=== PATIENT | male | born 1965 | race Caucasian/White ===

== ENCOUNTER 2019-04-04 09:33 | Inpatient (IN) | payer MEDICARE, MEDICAID, SELFPAY ==
[2019-04-04] VITALS (11 sets, daily range): BP systolic 126–150; BP diastolic 75–97; PULSE 71–148; RESP 16–20; TEMP 35.8–37.1; O2SAT 98–100; BMI 29.7
--- NOTE | ~2019-04-04 | XR_ITS ---
XR chest 1V portable 04/04/2019 10:40 Indication: Tachycardia. Patient on dialysis. Bilateral foot ulcers. Procedure: AP portable chest Comparison: 02/21/2019 Findings: Status post median sternotomy for CABG. Heart size mildly enlarged. Dual-lumen large bore c entral venous catheter, distal tip in the right atrium. No focal air space disease, pulmonary edema, pleural effusion or suspected pneumothorax. Impression: 1: No acute cardiopulmonary disease. Reviewed, dictated and finalized at location B. T DEVELOPER Impression: 1: No acute cardiopulmonary disease.
--- NOTE | 2019-04-04 09:58 | ED.GENADULT ---
HPI - General Adult General Chief complaint: Unspecified Stated complaint: High Blood Pressure Time Seen by Provider: 04/04/19 09:57 Source: patient and family Mode of arrival: ambulatory Limitations: no limitations History of Present Illness HPI narrative: The pt is a 53 y/o male who presents to the ED with c/o rapid HR that began this morning. Per family member, the pt's dialysis was cut 30 minutes short when staff noticed that his HR increased towards the end of his dialysis. The pt states that he has not had a high HR like this before and that he was at 88 bpm upon starting dialysis. His spot welder body assembly is Dr. Roche and he has been receiving dialysis for 2 months. The pt also reports weakness and foot wounds bilaterally. He has a PMHx of DM, HTN, CABG, and peripheral neuropathy, as well as a SHx of a CABG, stents, and a toe amputation. The pt's manager child is Dr. Pool at [place]. He is currently on Plavix and ASA. MD complaint: Rapid HR Onset (ago): hour(s) (this morning) Associated symptoms: weakness and other (foot wounds bilaterally) Related Data Allergies Allergy/AdvReac Type Severity Reaction Status Date / Time lisinopril Allergy Unknown Unknown Verified 04/04/19 09:49 Review of Systems Review of Systems: All systems reviewed & are unremarkable except as noted in HPI and below Constitutional: Constitutional: Reports weakness Integumentary/Breasts: Skin/Breast: Reports wounds (bilateral feet) PMFSH Past Medical History Medical History (Updated 04/04/19 @ 11:59 by Yue Haq MD) Diabetes Dialysis patient Hyperlipidemia Hypertension Kidney failure Peripheral neuropathy Seizures Surgical History Surgical History (Updated 04/04/19 @ 10:43 by Kassandra Longo) History of heart artery stent Hx of amputation toe Hx of CABG Hx of cardiac cath Social History Social History (Updated 04/04/19 @ 10:43 by Kassandra Longo) Smoking status: Never smoker Gender identity (if verbalized by the patient): Male Exam Narrative: Exam Narrative: General appearance: Well-developed, well-nourished, at the bedside Skin: Normal color, macerated skin of the feet bilaterally after labs showed blisters, no discharge Head: Normocephalic, nontraumatic Eyes: Clear conjunctiva ENT: Oropharynx normal, ears normal, nose normal Neck: Supple, nontender Chest and respiratory: Airway patent, no respiratory distress, no accessory muscle use, right chest dialysis catheter in place Heart: Tachycardia Abdomen: Soft, nontender, no organomegaly, quiet bowel sounds Vascular: Normal peripheral pulses, normal capillary refill. Musculoskeletal: Normal range of motion, nontender back Neurologic: Alert and oriented ?3, RN STARS is normal as tested, no gross motor deficit Course Course Emergency Course: Improving Currently patient monitor/EKG showed normal sinus rhythm. Basically patient converted to normal sinus rhythm from a flutter. Consultations Consultation #1: Discussed case with Crys Orozco NP to Rehabilitation Therapist, who has agreed to place Dr. Altamirano on the case. Date: 04/04/19 Time: 11:48 Consultation #2: Discussed case with Madelyn Malhotra NP to Hospitalist. Accepted admission. Date: 04/04/19 Time: 12:07 Consultation #3: Discussed case with Dr. Ferrer, Manager Trade Marketing. Will see pt for consult. Date: 04/04/19 Time: 12:24 Vital Signs Vital signs: Vital Signs Pulse Rate 148 H 04/04/19 09:43 Respiratory Rate 18 04/04/19 09:43 Blood Pressure 139/97 H 04/04/19 09:43 Pulse Oximetry 99 04/04/19 09:43 Pulse Rate 80 04/04/19 11:27 Respiratory Rate 18 04/04/19 09:43 Blood Pressure 126/84 04/04/19 11:27 Pulse Oximetry 100 05
--- NOTE | 2019-04-04 10:23 | ECG_ITS ---
Measurements Intervals [place] Rate: 148 P: MN: 0 QRS: -26 QRSD: 109 T: 100 QT: 293 QTc: 460 Interpretive Statements ATRIAL FLUTTER/TACHYCARDIA WITH RAPID VENTRICULAR RESPONSE ANTEROSEPTAL INFARCT, AGE INDETERMINATE BORDERLINE ST-T WAVE ABNORMALITY- LATERAL LEADS ABNORMAL ECG Electronically Signed On 04-04-2019 11:27:14 CYBER SECURITY MANAGER by Luke Ariza D.O.
[2019-04-04 10:47] LABS: Basophils Absolute Auto 0.1 K/mm3 (0.0-0.1); Basophils Percent Auto 0.7 % (0.2-1.2); Eosinophils Absolute Auto 0.1 K/mm3 (0-0.3); Eosinophils Percent Auto 1.2 % (0-4.4); Hematocrit 32.9 % (42.0-52.0); Hemoglobin 10.2 g/dL (14.0-18.0); Immature Granulocyte Absolute 0.03 K/mm3 (0.00-0.031); Immature Granulocyte Percent A 0.4 % (0-0.5); Lymphocytes Absolute Auto 1.07 K/mm3 (0.9-3.2); Lymphocytes Percent Auto 14.5 % (18.3-44.2); Mean Corpuscular Hemoglobin 28.8 pg (26-34); Mean Corpuscular Volume 92.9 fl (80-100); Mean Platelet Volume 8.8 fl (7.4-10.4); Monocytes Absolute Auto 0.7 K/mm3 (0.1-0.6); Monocytes Percent Auto 10.1 % (2.6-8.5); Neutrophils Absolute Auto 5.4 K/mm3 (1.3-6.7); Neutrophils Percent Auto 73.1 % (45.5-73.1); Platelet Count Result 253 k/mm3 (150-375); Red Blood Count 3.54 M/mm3 (4.6-6.20); Red Cell Distribution Width 15.4 % (11.5-14.5); White Blood Count 7.4 K/mm3 (4.5-10.0)
[2019-04-04 10:58] LABS: INR 1.1
[2019-04-04 10:59] LABS: Partial Thromboplastin Time 30.9 SECONDS (22.3-36.8)
[2019-04-04 11:08] LABS: Alanine Aminotransferase 14 U/L (4-50); Albumin Level 3.1 g/dL (3.5-5.1); Alkaline Phosphatase 112 U/L (38-126); Aspartate Amino Transferase 19 U/L (17-59); Bilirubin,Total 0.3 mg/dL (0.2-1.3); Blood Urea Nitrogen 15 mg/dL (9-20); Carbon Dioxide 29 mmol/L (22-30); Chloride 102 mmol/L (98-107); Estimated CRCL calculation 44 ml/min; Estimated Glomerular Filt Rate 35; Glucose 160 mg/dL (75-110); Potassium 3.5 mmol/L (3.4-5.0); Sodium 138 mmol/L (137-145)
[2019-04-04 11:21] LABS: Troponin I 0.086 ng/mL (0.000-0.034)
--- NOTE | 2019-04-04 11:59 | ECG_ITS ---
Measurements Intervals [place] Rate: 85 P: 156 AR: 168 QRS: -24 QRSD: 106 T: 151 QT: 399 QTc: 475 Interpretive Statements ECTOPIC ATRIAL RHYTHM POSSIBLE LEFT ATRIAL ENLARGEMENT INCOMPLETE RIGHT BUNDLE BRANCH BLOCK ANTEROSEPTAL INFARCT, AGE INDETERMINATE ST-T WAVE ABNORMALITY IN LATERAL LEADS- CONSIDER ISCHEMIA ABNORMAL ECG Electronically Signed On 04-04-2019 13:00:39 CONFERENCE DIRECTOR by Luke Ariza D.O.
--- NOTE | 2019-04-04 13:04 | PM.CNNEP ---
Assessment and Plan Assessment and plan (1) Atrial flutter, paroxysmal: Code(s): I48.92 - Unspecified atrial flutter Status: Acute Assessment and Plan: Patient had atrial flutter with rapid ventricular rate. This has spontaneously resolved. He does have coronary artery disease as a risk factor. He also was at the end of his dialysis so electrolytes may have played a role. Indeed his potassium was 3.5 in the emergency room and so may have been Lower at the end of his treatment. We should check a magnesium level as well. Troponins are elevated. Cardiology is going to see. (2) Acute kidney failure, unspecified: Code(s): N17.9 - Acute kidney failure, unspecified Status: Acute Assessment and Plan: The patient has acute kidney injury. His creatinine is only 2 here but this is directly after dialysis. We can watch to see how rapidly his creatinine rises. He does seem to be making a little bit of urine. Maybe he has some recovery? (3) Erythropoietin deficiency anemia: Code(s): D63.1 - Anemia in chronic kidney disease Status: Acute Assessment and Plan: The patient has a hemoglobin of 10.2. He will get Epogen with dialysis (4) Second degree burn of foot: Code(s): T25.229A - Burn of second degree of unspecified foot, initial encounter Status: Acute Assessment and Plan: The wounds look fresh. He says that his has been treating the wounds topically. (5) Hypotension: Code(s): I95.9 - Hypotension, unspecified Status: Acute Assessment and Plan: Blood pressure is under good control right now. (6) CAD (coronary artery disease): Code(s): I25.10 - Atherosclerotic heart disease of [place] coronary artery without angina pectoris Status: Acute Assessment and Plan: The patient is not having any chest pain. His troponins are elevated. Perhaps this is from his renal failure. Cardiology will see History of Present Illness Reason for Consult Consult date: 04/04/19 Chief Complaint Chief complaint: High Blood Pressure History of Present Illness Narrative: Arturo is a very pleasant 53-year-old gentleman with multiple medical problems including acute kidney injury, coronary disease status post stents and bypass surgery, chronic hypotension, hyperlipidemia, hypertension, BPH, obstructive uropathy, osteomyelitis of the right great toe, diabetes with retinopathy and nephropathy. The patient was getting dialysis today. It went well until about 10 minutes before the end of the treatment when he developed palpitations. The machine alarmed with a fast heart rate. It apparently was running around 150. They took him off the machine and sent him over to the emergency room. In the ER he was found to have atrial flutter with rapid ventricular rate. The patient spontaneously reverted to sinus rhythm. He feels better right now. Evaluation revealed an elevated troponin so he is being capped for further evaluation. The patient mentions that he had dry feet and so his ran him a hot bath with Epsom salts and soap. Unfortunately the water was too hot and he burned both feet. He has neuropathy so it did not hurt him. He says he tested the water with his hand and felt like it was just warm. Review of Systems Constitutional: Constitutional: Reports no additional constitutional complaints Eyes: Eyes: Reports no additional eye complaints ENT: Reports system reviewed and no additional complaints, except as documented Cardiovascular: Cardiovascular: Reports no additional cardiovascular complaints Gastrointestinal: Gastrointestinal: Reports no additional gastrointestinal complaints Genitourinary: Genitourinary: Reports no additional male genitourinary complaints Musculoskeletal: Musculoskeletal: Reports no additional musculoskeletal complaints Integumentary/Breasts: Skin/Breast: Reports system reviewed and no additional complaints, exce
[2019-04-04 14:26] LABS: Troponin I 0.116 ng/mL (0.000-0.034)
--- NOTE | 2019-04-04 15:14 | PM.IMHP ---
H&P: HPI History of Present Illness Chief complaint: Atrial flutter with RVR/and STEMI/feet burn Narrative: Arturo Mcmillan is a 53 year old male with a past medical history of having intermittent atrial fibrillation. The patient was at dialysis today when they noticed that his heart rate was increased and his dialysis was cut short by 30 minutes. He has a past medical history of having had double bypass and 4 stents December of this year. This was performed at [facility]. He was discharged on 02/18/2019 from [facility]. Patient had a 2 vessel CABG on January 25, 2019 followed by 4 stents on 01/28/2019. Patient had a short-lived. Atrial fibrillation which was treated with amiodarone load and low-dose metoprolol. Patient converted to normal sinus rhythm at that time. Please see his notes from [facility]. Patient was also noted to have ghosh on his feet. The patient stated that he had dry skin and he was soaking his feet and did realize they got burned. His severe peripheral neuropathy. Patient stated he is not able to take a shower since he has a temporary dialysis catheter to his right upper chest. Patient stated that in the next week he is supposed yet mapped for a permanent dialysis device. Patient is currently on a Cardizem drip. According to Cardiology the patient converted somewhere after level o'clock today. Review of Systems Review of Systems: All systems reviewed & are unremarkable except as noted in HPI and below Constitutional: Constitutional: Reports as per HPI and Reports no additional constitutional complaints Eyes: Eyes: Reports as per HPI and Reports other (Legally blind due to retinopathy.) ENT: Reports system reviewed and no additional complaints, except as documented and Reports hearing normal Cardiovascular: Cardiovascular: Reports other (Atrial fibrillation) Respiratory: Respiratory: Reports no additional respiratory complaints and Reports no additional respiratory complaints Gastrointestinal: Gastrointestinal: Reports as per HPI and Reports no additional gastrointestinal complaints Musculoskeletal: Musculoskeletal: Reports no additional musculoskeletal complaints Integumentary/Breasts: Skin/Breast: Reports as per HPI and Reports other (Ghosh to his feet.) Neurologic: Reports system reviewed and no additional complaints, except as documented, Reports as per HPI and Reports Normal hearing present Psychiatric: Psychiatric: Reports no additional psychiatric complaints and Reports as per HPI Endocrine: Endocrine: Reports no additional endocrine complaints Hematologic/Lymphatic: Hematologic/Lymphatic: Reports no additional hematologic/lymphatic complaints Allergic/Immunologic: Allergic/Immunologic: Reports no additional allergic/immunologic complaints [facility] Past Medical History Medical History (Updated 04/04/19 @ 15:36 by Madelyn Malhotra NP) Atrial fibrillation CAD (coronary artery disease) History of 4 stents and double bypass Congestive heart failure Mixed with EF approximately 30% grade 1 diastolic Diabetes Dialysis patient Erythropoietin deficiency anemia Hyperlipidemia Hypertension Hypotension Kidney failure 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 He does need her to be durable power attorney law clerk and is a full code. Patient states he occasionally drinks a beer but not very often. Stated he has
[2019-04-04 16:31] LABS: Glucose Point of Care 98 (65-105)
[2019-04-04 17:18] LABS: Troponin I 0.178 ng/mL (0.000-0.034)
[2019-04-04 17:40] LABS: Hemoglobin A1C 5.4 % (<5.7)
[2019-04-04] MEDS: HEPARIN SODIUM 5,000 UNITS/ML VIAL 5000 UNITS SUB-Q (20:27)
[2019-04-04] MEDS: SILVERGEL (ELTA) 45 ML 1 APPLIC TOPICAL (20:31)
[2019-04-04 20:35] LABS: Glucose Point of Care 81 (65-105)
[2019-04-05] VITALS (16 sets, daily range): BP systolic 124–151; BP diastolic 71–88; PULSE 67–92; RESP 16–18; TEMP 36.2–36.6; O2SAT 95–100
[2019-04-05 06:37] LABS: Basophils Absolute Auto 0.1 K/mm3 (0.0-0.1); Basophils Percent Auto 0.8 % (0.2-1.2); Eosinophils Absolute Auto 0.2 K/mm3 (0-0.3); Eosinophils Percent Auto 2.4 % (0-4.4); Hematocrit 31.3 % (42.0-52.0); Hemoglobin 10.1 g/dL (14.0-18.0); Immature Granulocyte Absolute 0.03 K/mm3 (0.00-0.031); Immature Granulocyte Percent A 0.5 % (0-0.5); Lymphocytes Absolute Auto 0.97 K/mm3 (0.9-3.2); Lymphocytes Percent Auto 15.5 % (18.3-44.2); Mean Corpuscular HGB Conc 32.3 g/dl (32-36); Mean Corpuscular Hemoglobin 28.9 pg (26-34); Mean Corpuscular Volume 89.7 fl (80-100); Mean Platelet Volume 8.8 fl (7.4-10.4); Monocytes Absolute Auto 0.6 K/mm3 (0.1-0.6); Monocytes Percent Auto 8.8 % (2.6-8.5); Neutrophils Absolute Auto 4.5 K/mm3 (1.3-6.7); Platelet Count Result 272 k/mm3 (150-375); Red Blood Count 3.49 M/mm3 (4.6-6.20); Red Cell Distribution Width 15.3 % (11.5-14.5); White Blood Count 6.3 K/mm3 (4.5-10.0)
[2019-04-05 06:51] LABS: Alanine Aminotransferase 12 U/L (4-50); Alkaline Phosphatase 93 U/L (38-126); Aspartate Amino Transferase 17 U/L (17-59); Bilirubin,Total 0.4 mg/dL (0.2-1.3); Blood Urea Nitrogen 19 mg/dL (9-20); Calcium 8.4 mg/dL (8.4-10.2); Carbon Dioxide 27 mmol/L (22-30); Chloride 103 mmol/L (98-107); Estimated CRCL calculation 29 ml/min; Estimated Glomerular Filt Rate 25; Glucose 80 mg/dL (75-110); Magnesium 1.9 mg/dL (1.6-2.3); Potassium 4.2 mmol/L (3.4-5.0); Sodium 139 mmol/L (137-145)
[2019-04-05 07:09] LABS: Troponin I 0.206 ng/mL (0.000-0.034)
[2019-04-05] MEDS: SILVERGEL (ELTA) 45 ML 1 APPLIC TOPICAL (08:21)
[2019-04-05] MEDS: HEPARIN SODIUM 5,000 UNITS/ML VIAL 5000 UNITS SUB-Q ×2 (08:21→20:50)
[2019-04-05 09:01] LABS: Glucose Point of Care 65 (65-105)
--- NOTE | 2019-04-05 12:44 | PM.CNCAR ---
Assessment and Plan Additional Plan This patient has an ischemic cardiomyopathy with a low ejection fraction according to the records from [place]. His hospitalization was somewhat unusual since he underwent surgical revascularization of the LAD and the diagonal followed by percutaneous revascularization of the RCA OM and diagonal as described above. The records do not detail the reasons for all this. He enters this hospital with asymptomatic or minimally symptomatic recurrence of atrial flutter. Given his very low ejection fraction I would treat him with amiodarone. He is back in sinus rhythm I will start amiodarone at 400 mg q.12 hours for now. IV diltiazem has been stopped. Since he is on dual anti-platelet therapy at this time I am not going to recommend systemic anticoagulation in hopes of avoiding triple therapy. Will follow him with you during this hospitalization I will resume his beta-martha and dual anti-platelet therapy they have not been resumed for some reason. For now I will not give him midodrine and watch his blood pressure. If his blood pressure is acceptable then Sam inhibitor, ARB or Entresto might be started during this hospitalization History of Present Illness History of Present Illness Consult date/time: 04/05/19 12:44 Reason For Visit: Atrial flutter with RVR/and STEMI/feet burn Narrative: This is a 53-year-old gentleman with a complex cardiovascular history who I am seeing at the request of Jaiden edwardist today for assistance with the evaluation and management of atrial flutter. He is unknown to me prior to me seeing him in consultation today. The patient was brought to the hospital yesterday when he was noted to be tachycardic while undergoing hemodialysis as an outpatient. For that reason the dialysis center center to the emergency room here where he was found to be in atrial flutter with rapid ventricular response. The patient tells me that he was completely unaware of the fact that he was having a cardiac arrhythmia but after being told of the problem he did notice later that is heart rate was rapid. He did not experience any chest pain or air hunger during this episode. In the emergency room of course he was treated with intravenous diltiazem which did result in slowing his rhythm at all after a short time converting back to sinus rhythm and he remains in sinus rhythm now he is asymptomatic in the IV diltiazem has been discontinued. This is a patient with a extensive history of heart disease having undergone recent surgical or percutaneous revascularization at [place]. Of course he also has a history of chronic kidney disease as well. Apparently he has a history of hypertension and diabetes as well as a previous history of osteomyelitis and a great toe amputation in the past. The records that I have available to me indicate that he was hospitalized at [place] in December of 2018 and was found to have an elevated troponin is in the setting of significant anemia. He obviously underwent catheterization I do not have those records but he was referred to cardiothoracic surgery for coronary bypass. He was operated on by Dr. molina who performed the MORGAN graft to the LAD and a vein graft to a diagonal. He had a very low ejection fraction of 20 or 25% and required a balloon pump and pressors after the surgery. For apparently unusual reasons after the surgery he was a short time later brought for percutaneous revascularization of his right coronary artery obtuse marginal diagonal and ramus by Dr. Howard. After his procedure apparently his renal function deteriorated he became dependent on hemodialysis. He has a temporary dialysis catheter in place and was undergoing dialysis again. The the notes indicate that he did have postop atrial fibrillation which was treated with IV amiodarone transiently at [place] he was not discharged on any antiarrhythmic agents obviously in hopes that he would not require this for the long-term.
[2019-04-05 12:59] LABS: Glucose Point of Care 132 (65-105)
--- NOTE | 2019-04-05 13:52 | PM.PNNEP ---
Progress Note: A&P Assessment and Plan (1) Dialysis patient: Code(s): Z99.2 - Dependence on renal dialysis Status: Chronic Assessment and Plan: Patient is on dialysis 3 times a week. He is due tomorrow. It is not clear whether he is going to recover his kidney function. Will check a creatinine tomorrow and decide whether to dialyze him based on that. discussed with HOT METAL MIXER OPERATOR HELPERJeaneth Joshi and Dr Altamirano (2) CAD (coronary artery disease): Code(s): I25.10 - Atherosclerotic heart disease of [place] coronary artery without angina pectoris Status: Chronic Assessment and Plan: He had bypass and stenting. No chest pain now. He did have positive troponins. Cardiology following. (3) Atrial flutter, paroxysmal: Code(s): I48.92 - Unspecified atrial flutter Status: Acute Assessment and Plan: In sinus rhythm now. Currently on amiodarone (4) Erythropoietin deficiency anemia: Code(s): D63.1 - Anemia in chronic kidney disease Status: Acute Assessment and Plan: He gets Epogen with dialysis. Hemoglobin is target (5) Second degree burn of foot: Code(s): T25.229A - Burn of second degree of unspecified foot, initial encounter Status: Acute Assessment and Plan: He has bandages on the feet. Wound care is participating (6) Diabetes: Code(s): E11.9 - Type 2 diabetes mellitus without complications Status: Acute Assessment and Plan: On Accu-Cheks and sliding-scale insulin Subjective Interval history: The patient feels okay today. ?I am bored ? No chest pain or shortness of breath. Feet are bandaged. There is no discomfort there. Review of Systems Cardiovascular: Cardiovascular: Reports no additional cardiovascular complaints Respiratory: Respiratory: Reports no additional respiratory complaints Gastrointestinal: Gastrointestinal: Reports no additional gastrointestinal complaints Genitourinary: Genitourinary: Reports no additional male genitourinary complaints Exam Narrative: Exam Narrative: Well developed well-nourished in no acute distress Lungs clear bilaterally Heart regular without rub Abdomen bowel sounds positive soft nontender Extremities no edema Skin no rash except for the ghosh on his feet. Objective Data Vital Signs Vital Signs: Vital Signs - 24 hr 04/04/19 16:00 04/04/19 18:00 04/04/19 19:50 Temperature 36.1 C L 36.8 C Pulse Rate 71 74 83 Respiratory Rate 20 20 Blood Pressure 135/78 148/81 H Pulse Oximetry 100 98 04/04/19 20:00 04/04/19 22:00 04/04/19 23:35 Temperature 37.1 C Pulse Rate 79 79 77 Respiratory Rate 18 18 Blood Pressure 135/75 Pulse Oximetry 98 98 04/05/19 00:00 04/05/19 01:56 04/05/19 04:00 Temperature 36.4 C Pulse Rate 76 87 86 Respiratory Rate 18 16 Blood Pressure 151/88 H Pulse Oximetry 98 95 04/05/19 06:00 04/05/19 08:00 04/05/19 08:30 Temperature 36.6 C Pulse Rate 81 82 82 Respiratory Rate 18 18 Blood Pressure 147/82 H Pulse Oximetry 99 99 04/05/19 12:00 Temperature 36.3 C L Pulse Rate 78 Respiratory Rate 18 Blood Pressure 124/78 Pulse Oximetry 100 Intake/Output Intake/Output: Intake & Output 04/02/19 04/03/19 04/04/19 04/05/19 23:59 23:59 23:59 23:59 Intake Total 613 Output Total 0 Balance 0 613 Meds/Results Medications: Active Medications Generic Name Dose Route Start Last Admin Trade Name Freq PRN Reason Stop Dose Admin Amiodarone HCl 400 mg 04/05/19 12:40 Pacerone PO Q12HR [facility] Aspirin 81 mg 04/05/19 09:00 Aspirin Ec PO QAM [facility] Clopidogrel Bisulfate 75 mg 04/05/19 09:00 Plavix BY MOUTH 05/06/19 09:01 DAILY [facility] Dextrose 12.5 gm 04/04/19 17:09 Dextrose 50% Syringe IV PUSH PRN PRN Hypoglycemia Protocol Glucagon 1 mg 04/04/19 17:09 Glucagon For Inj IM PRN PRN Hypoglycemia Protocol Glucose 15 gm 12
[2019-04-05] MEDS: ASPIRIN 81 MG ENTERIC TABLET PO (14:10)
[2019-04-05] MEDS: AMIODARONE HCL 200 MG TABLET 400 MG PO ×2 (14:10→23:48)
[2019-04-05] MEDS: CLOPIDOGREL BISULFATE 75 MG TABLET BY MOUTH (14:10)
[2019-04-05] MEDS: METOPROLOL SUCCINATE EXT REL 25 MG TABCR PO (14:11)
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
[2019-04-05 17:22] LABS: Glucose Point of Care 143 (65-105)
[2019-04-05 20:32] LABS: Glucose Point of Care 116 (65-105)
[2019-04-06] VITALS (12 sets, daily range): BP systolic 118–157; BP diastolic 67–92; PULSE 66–84; RESP 12–16; TEMP 36.5–36.9; O2SAT 99–100
[2019-04-06 08:03] LABS: Glucose Point of Care 153 (65-105)
[2019-04-06] MEDS: CLOPIDOGREL BISULFATE 75 MG TABLET BY MOUTH (08:23)
[2019-04-06] MEDS: AMIODARONE HCL 200 MG TABLET 400 MG PO (08:23)
[2019-04-06] MEDS: ASPIRIN 81 MG ENTERIC TABLET PO (08:23)
[2019-04-06] MEDS: METOPROLOL SUCCINATE EXT REL 25 MG TABCR PO (08:23)
[2019-04-06] MEDS: SILVERGEL (ELTA) 45 ML 1 APPLIC TOPICAL (08:24)
[2019-04-06] MEDS: HEPARIN SODIUM 5,000 UNITS/ML VIAL 5000 UNITS SUB-Q (08:24)
--- NOTE | 2019-04-06 10:21 | PM.PNCARD ---
Progress Note: A&P Additional Plan Continue amiodarone 800 mg daily(400 Q 12) while still in the hospital Upon discharge I would reduce this to 400 mg daily with plans to titrate to 200 mg daily in the next 1-3 months. If he remains dependent on renal dialysis and is not hypotensive than ARB or Entresto should be added to his regimen given his low ejection fraction Time Spent With Patient Time with patient: less than 15 minutes Subjective Interval history: Asymptomatic Sleeping in bed when I entered the room to upon awakening offers no cardiovascular complaints Telemetry demonstrates normal sinus rhythm no further atrial flutter Exam Const: General: comfortable and no acute distress HENMT: Mouth: Yes moist mucous membranes Eyes: Sclera: sclerae normal Pupils: PERRL Neck: Neck: no JVD Thyroid: thyroid normal Resp: Effort & Inspection: normal respiratory effort Auscultation: clear to auscultation bilaterally Cardio: Rate: regular rate Rhythm: regular rhythm Heart sounds: murmur Other: Patient has a grade 2 systolic murmur at the left sternal border GI: Auscultation: normal bowel sounds Extrem: General: normal to inspection Other: No peripheral edema Objective Data Vital Signs Vital Signs: Vital Signs - 24 hr 04/05/19 12:00 04/05/19 14:00 04/05/19 14:11 Temperature 36.3 C L Pulse Rate 78 83 82 Respiratory Rate 18 Blood Pressure 124/78 Pulse Oximetry 100 04/05/19 16:00 04/05/19 17:00 04/05/19 18:00 Temperature 36.2 C L Pulse Rate 77 71 69 Respiratory Rate 18 18 Blood Pressure 125/71 Pulse Oximetry 100 100 04/05/19 20:00 04/05/19 22:00 04/05/19 23:48 Temperature 36.4 C Pulse Rate 67 80 75 Respiratory Rate 18 Blood Pressure 133/76 Pulse Oximetry 99 04/06/19 00:00 04/06/19 02:00 04/06/19 04:00 Temperature 36.5 C Pulse Rate 75 79 84 Respiratory Rate 16 Blood Pressure 118/67 Pulse Oximetry 99 04/06/19 06:00 04/06/19 08:00 04/06/19 08:20 Temperature 36.6 C Pulse Rate 75 79 79 Respiratory Rate 12 Blood Pressure 157/87 H Pulse Oximetry 100 04/06/19 08:23 04/06/19 09:47 Temperature Pulse Rate 80 72 Respiratory Rate Blood Pressure Pulse Oximetry Intake/Output Intake/Output: Intake & Output 04/03/19 04/04/19 04/05/19 04/06/19 23:59 23:59 23:59 23:59 Intake Total 1493 900 Output Total 0 100 Balance 0 1393 900 Meds/Results Medications: Active Medications Generic Name Dose Route Start Last Admin Trade Name Freq PRN Reason Stop Dose Admin Amiodarone HCl 400 mg 04/05/19 12:40 04/06/19 08:23 Pacerone PO 400 mg Q12HR AUBRIE Administration Aspirin 81 mg 04/05/19 09:00 04/06/19 08:23 Aspirin Ec PO 81 mg QAM AUBRIE Administration Clopidogrel Bisulfate 75 mg 04/05/19 09:00 04/06/19 08:23 Plavix BY MOUTH 05/06/19 09:01 75 mg DAILY AUBRIE Administration Dextrose 12.5 gm 04/04/19 17:09 Dextrose 50% Syringe IV PUSH PRN PRN Hypoglycemia Protocol Glucagon 1 mg 04/04/19 17:09 Glucagon For Inj IM PRN PRN Hypoglycemia Protocol Glucose 15 gm 04/04/19 17:09 Glutose 15 PO PRN PRN Hypoglycemia Protocol Heparin Sodium (Porcine) 5,000 units 04/04/19 21:00 04/06/19 08:24 Heparin Sodium SUB-Q 5,000 units Q12HR AUBRIE Administration Dextrose 1,000 mls @ 100 mls/hr 04/04/19 17:09 Dextrose 5% 1,000 Ml IVPB PRN PRN Hypoglycemia Protocol Albumin Human 50 mls @ 999 mls/hr 04/06/19 07:22 Albutein IVPB 05/06/19 07:23 Q10M PRN HYPOTENSION Insulin Aspart 2 - 5 units 04/05/19 08:00 04/06/19 09:46 Novolog SUB-Q Not Given TIDWM AUBRIE Protocol Metoprolol Succinate 25 mg 04/05/19 09:00 04/06/19 08:23 Toprol Xl PO 25 mg QAM AUBRIE Administration Silver Nitrate 1 each 04/04/19 09:00 04/06/19 08:25 Acticoat 4 X 5 TOPICAL 1 each QAM AUBRIE Administration Silver Nitrate 1
[2019-04-06 12:10] LABS: Glucose Point of Care 128 (65-105)
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
[2019-04-06 13:45] LABS: Albumin Level 2.9 g/dL (3.5-5.1); Blood Urea Nitrogen 29 mg/dL (9-20); Calcium 8.2 mg/dL (8.4-10.2); Carbon Dioxide 25 mmol/L (22-30); Chloride 103 mmol/L (98-107); Estimated CRCL calculation 29 ml/min; Estimated Glomerular Filt Rate 22; Glucose 105 mg/dL (75-110); Phosphorus 4.2 mg/dL (2.5-4.5); Potassium 3.9 mmol/L (3.4-5.0); Sodium 136 mmol/L (137-145)
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
--- NOTE | 2019-04-06 19:40 | PC.NURSE ---
Addendum entered by Megan Islas RN 04/06/19 19:52: Dr Woody notified of pt's intentions to leave AMA. Original Note: Pt leaving against medical advice, pt upset that he hasn't had dialysis today and is tired of being in the hospital. Explained that he will not receive any prescriptions for medications that have been started while he was here. Pt states he understands the risks and has signed the AMA paperwork. Pt warned if symptoms return or if he has chest pain, palpitations, or any shortness of breath to go to an ER. IV and monitor removed. Pt states he has all his belongings and does not need to check the list. Pt's family member is wheeling pt out by wheelchair.
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
== END 2019-04-06 19:50 | disposition left against medical advice (07) | DRG 201 ==
LOC: ANHED 12:35 → ANHIMU 04-06 19:50
PROVIDERS: Internal Medicine Nephrology; Nurse Practitioner; Admitting Provider Internal Medicine; Emergency Provider Emergency Medicine; PCP Family Medicine; Visit Provider Internal Medicine
DX: I48.92 Unspecified atrial flutter (principal); E11.22 Type 2 diabetes mellitus with diabetic chronic kidney disease; I13.2 Hypertensive heart and chronic kidney disease with heart failure and with stage 5 chronic kidney disease, or end stage renal disease; N18.6 End stage renal disease; I50.42 Chronic combined systolic (congestive) and diastolic (congestive) heart failure; I25.10 Atherosclerotic heart disease of native coronary artery without angina pectoris; D63.1 Anemia in chronic kidney disease; R79.89 Other specified abnormal findings of blood chemistry; T25.229A Burn of second degree of unspecified foot, initial encounter; I95.89 Other hypotension; E78.5 Hyperlipidemia, unspecified; N40.0 Benign prostatic hyperplasia without lower urinary tract symptoms; E11.319 Type 2 diabetes mellitus with unspecified diabetic retinopathy without macular edema; X11.0XXA Contact with hot water in bath or tub, initial encounter; H54.8 Legal blindness, as defined in USA; I25.5 Ischemic cardiomyopathy; Z99.2 Dependence on renal dialysis; Z95.1 Presence of aortocoronary bypass graft; Z95.5 Presence of coronary angioplasty implant and graft
CPT/HCPCS: 36415; 71045; 80053; 80069; 83036; 83735; 84443; 84484; 85025; 85610; 85730; 93005; 96365; 96366; 99285; A9270; J1644

== ENCOUNTER 2019-06-07 08:08 | Emergency (ER) | payer MEDICARE, MEDICAID, SELFPAY ==
[2019-06-07 08:15] VITALS: BP 127/83; PULSE 76; RESP 18; TEMP 36.5; O2SAT 100
--- NOTE | 2019-06-07 08:32 | ED.GENADULT ---
HPI - General Adult General Chief complaint: Unspecified Stated complaint: dialysis catheter broken Time Seen by Provider: 06/07/19 08:21 Source: patient Mode of arrival: ambulatory Limitations: no limitations History of Present Illness HPI narrative: Pt is a 53 y/o male who presents to the ED with c/o dialysis catheter malfunction. Pt went to get dialysis and when the nurse went to put the saline flush in and the tip broke off. Pt had the dialysis catheter inserted in March at [facility]. His Director Marketing Communications is Dr. Roche. Pt gets dialysis every Monday, Monday, and Monday. He did not receive dialysis today and he states that he has not been getting a lot of fluids removed any ways. He denies CP, SOB, or a fever. complaint: Dialysis catheter malfunction Onset (ago): day(s) (today) Relieving factors: none Exacerbating factors: none Associated symptoms: denies other symptoms Treatments prior to arrival: none Related Data Home Medications Medication Instructions Recorded Confirmed aspirin [Aspir-81] 81 mg PO DAILY 04/04/19 04/04/19 atorvastatin 80 mg PO DAILY 04/04/19 04/04/19 clopidogrel [Plavix] 75 mg PO DAILY 04/04/19 04/04/19 metoprolol succinate 12.5 mg PO BID 04/04/19 04/04/19 midodrine 5 mg PO BID 04/04/19 04/04/19 tamsulosin 0.4 mg PO DAILY 04/04/19 04/04/19 Allergies Allergy/AdvReac Type Severity Reaction Status Date / Time lisinopril Allergy Unknown Unknown Verified 04/04/19 09:49 Review of Systems Review of Systems: All systems reviewed & are unremarkable except as noted in HPI and below Constitutional: Constitutional: Denies fever(s) Cardiovascular: Cardiovascular: Denies chest pain Respiratory: Respiratory: Denies dyspnea [facility] Past Medical History Medical History Atrial fibrillation CAD (coronary artery disease) History of 4 stents and double bypass Congestive heart failure Mixed with EF approximately 30% grade 1 diastolic Diabetes Diabetes Dialysis patient Erythropoietin deficiency anemia Hyperlipidemia Hypertension Hypotension Kidney failure Legally blind Due to retinopathy Peripheral neuropathy Second degree burn of foot Seizures Surgical History Surgical History History of heart artery stent 4 stents History of tonsillectomy Hx of amputation Right great toe Hx of CABG 2 vessel Hx of cardiac cath Family History Family History (Updated 04/04/19 @ 15:24 by Madelyn Malhotra NP) Father Healthy adult Mother Healthy adult Social History Social History Social History: He is and currently living with his ex- Bola tavarez. He does need her to be durable power erisa attorney and is a full code. Patient states he occasionally drinks a beer but not very often. Stated he has not smoked marijuana since 80s. He is disabled Smoking status: Never smoker Smokeless tobacco user: chewing tobacco Smoking end date: 05/01/16 Additional smoking assessment comments: chews tobacco for 41 years Alcohol intake: former Substance use: former Additional living arrangements comments: Ex Additional occupation/education comments: Disabled Gender identity (if verbalized by the patient): Male Spiritual care concerns: No Agree to blood products: Yes Exam Narrative: Exam Narrative: APPEARANCE: No acute distress, nontoxic, resting in bed EYES: EOMI HEENT: Normocephalic, atraumatic, OMM RESPIRATORY: No respiratory distress Clear to auscultation bilaterally with no rhonchi wheezing or rales. CARDIOVASCULAR: Regular rate and rhythm without murmurs rubs or gallops. Chest: Right chest has a tunneled dialysis catheter. The tip of 1 of the catheters have is a Luer-Florencia broken off there is no erythema of the chest ABDOMINAL: Soft, nontender, MUSCULOSKELETAl: Moves all extremities. NEURO: Awake and alert. Followi
[2019-06-07 09:25] VITALS: BP 120/67; PULSE 77; RESP 16; O2SAT 99
== END 2019-06-07 09:25 | disposition home or self-care (01) ==
PROVIDERS: Emergency Provider Emergency Medicine; PCP Family Medicine
DX: T82.49XA Other complication of vascular dialysis catheter, initial encounter (principal); I48.91 Unspecified atrial fibrillation; I13.2 Hypertensive heart and chronic kidney disease with heart failure and with stage 5 chronic kidney disease, or end stage renal disease; N18.6 End stage renal disease; E11.22 Type 2 diabetes mellitus with diabetic chronic kidney disease; I50.9 Heart failure, unspecified; I25.10 Atherosclerotic heart disease of native coronary artery without angina pectoris; Z95.1 Presence of aortocoronary bypass graft; D63.1 Anemia in chronic kidney disease; Z95.5 Presence of coronary angioplasty implant and graft; H54.8 Legal blindness, as defined in USA; E11.319 Type 2 diabetes mellitus with unspecified diabetic retinopathy without macular edema; E11.42 Type 2 diabetes mellitus with diabetic polyneuropathy; Z89.411 Acquired absence of right great toe; Z79.02 Long term (current) use of antithrombotics/antiplatelets; Z79.82 Long term (current) use of aspirin
CPT/HCPCS: 99283

== ENCOUNTER 2019-06-07 15:25 | Day surgery (SDC) | payer MEDICARE, MEDICAID, SELFPAY ==
--- NOTE | ~2019-06-07 | XR_ITS ---
EXAMINATION: XR chest port-a-cath/central DATE: 06/07/2019 18:38 INDICATION: Dialysis catheter insertion TECHNIQUE: frontal view of the chest was obtained. COMPARISON: Chest radiograph dated 04/04/2019 FINDINGS: Interval removal of the prior right internal jugular central venous catheter and placement of a new l arge-bore dual-lumen left internal jugular central venous dialysis catheter with distal tip at the hi gh right atrium. Mild increased interstitial pattern in the right lower lung zone suggesting mild pul monary edema. Blunting at the right costophrenic angle consistent with small right pleural effusion. Mild atelectasis at the lateral left lung base. No pneumothorax. Cardiomegaly. Median sternotomy wire s and mediastinal surgical clips are seen, likely from prior coronary artery bypass grafting. IMPRESSION: 1. Left internal jugular central venous catheter in expected position with no pneumothorax. 2. Suggestion of mild congestive heart failure with radial megaly, mild pulmonary edema at the right lower lung zone and very small right pleural effusion. Reviewed, dictated and finalized at location A. UCT MANAGER [employer] IMPRESSION: 1. Left internal jugular central venous catheter in expected position with no p neumothorax. 2. Suggestion of mild congestive heart failure with radial megaly, mild pulmona ry edema at the right lower lung zone and very small right pleural effusion.
--- NOTE | ~2019-06-07 | XR_ITS ---
EXAMINATION: XR fl guide central line place DATE: 06/07/2019 19:59 INDICATION: Dialysis catheter insertion TECHNIQUE: 2 fluoroscopic spot images of the left neck and upper chest were obtained during procedure performed by Dr. Overton. Radiologist was not present for the imaging or procedure. The amount of fl uoroscopy time used during this procedure was 0.5 minutes. COMPARISON: Chest radiographs dated 04/04/2019 and 06/07/2019 FINDINGS: Images demonstrate a large-bore dual-lumen left internal jugular central venous catheter with distal tip projecting over the right side of the mediastinum at the level of the superior cavoatrial junctio n. Sternotomy wires are present. There is a slight kink along the cephalad wall of the catheter at it s apex which appears to have resolved on the subsequent follow-up chest radiograph. IMPRESSION: 1. Fluoroscopy utilized during left internal jugular central venous catheter placement which is in ex pected position. Reviewed, dictated and finalized at location A. RIOLOGIST IMPRESSION: 1. Fluoroscopy utilized during left internal jugular central venous catheter pl acement which is in expected position.
[2019-06-07 15:29] VITALS: BP 189/104; PULSE 75; RESP 14; TEMP 36.3; O2SAT 100; BMI 29.4
--- NOTE | 2019-06-07 17:00 | WPDANESEPPF ---
Anes - Initial Pre Proc Eval Procedure: Operation Date: 06/07/19 16:30 Proposed Procedures p Removal And Replacement Of Tunneled Dialysis Catheter - Jaya Overton DO Date/Time: 06/07/19 17:00 Surgeon: Jaya Overton DO Pre Op Diagnosis: Complicated Dialysis Cath/ Mechanical Patient Data Age: 53 Gender: M Height: 5 ft 8 in Weight: 87.8 kg Last Vital Signs Temp 36.3 C L 06/07/19 15:29 Pulse 75 06/07/19 15:29 Resp 14 06/07/19 15:29 BP 189/104 H 06/07/19 15:29 Pulse Ox 100 06/07/19 15:29 Allergies Allergy/AdvReac Type Severity Reaction Status Date / Time lisinopril Allergy Unknown hives Verified 06/07/19 15:36 Home Medications Medication Instructions Recorded Confirmed Type aspirin [Aspir-81] 81 mg PO DAILY 04/04/19 06/07/19 History atorvastatin 80 mg PO DAILY 04/04/19 06/07/19 History clopidogrel [Plavix] 75 mg PO DAILY 04/04/19 06/07/19 History metoprolol succinate 12.5 mg PO BID 04/04/19 06/07/19 History midodrine 5 mg PO BID 04/04/19 06/07/19 History tamsulosin 0.4 mg PO DAILY 04/04/19 06/07/19 History Patient hx anesthesia problems: none Family hx anesthesia problems: none PMFSH Past Medical History Medical History Atrial fibrillation CAD (coronary artery disease) History of 4 stents and double bypass Congestive heart failure 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 He does need her to be durable power attorney general and is a full code. Patient states he occasionally drinks a beer but not very often. Stated he has not smoked marijuana since 80s. He is disabled Smoking status: Never smoker Smokeless tobacco user: chewing tobacco Smoking end date: 05/01/16 Additional smoking assessment comments: chews tobacco for 41 years Alcohol intake: former Substance use: former Additional living arrangements comments: Ex Additional occupation/education comments: Disabled Gender identity (if verbalized by the patient): Male Spiritual care concerns: No Agree to blood products: Yes Anes - Eval Final PreProcedure Day of Procedure 06/07/19 17:00 Patient weight: overweight Heart: regular rate and rhythm Lungs: decreased breath sounds Airway: Mallampati scale class II Neurological: lethargic Last oral intake: >/= 8 hours ASA classification: IV Emergent: yes Anesthetic plan: proceed Anesthesia type and monitoring: general GIVS and standard monitoring Informed Consent: The patient's anesthetic plan and its attendant risks and benefits were discussed with the patient/family/POA. Questions were solicited and answers provided to the satisfaction of the patient/family/POA.
[2019-06-07] MEDS: SODIUM CHLORIDE 0.9% IV 500 ML 30 ML IV CONT (17:12)
--- NOTE | 2019-06-07 17:14 | WPDHPUPDATE1 ---
History and Physical Update Update Date/Time: 06/07/19 17:14 History and Physical has been reviewed, including an updated exam of the patient. Patient was unable to have dialysis catheter de-clotted at dialysis clinic. Will have to place new catheter and remove old one. I have recommended removal and replacement of tunneled dialysis catheter. No other changes to H&P. Risks, benefits, and alternatives have been discussed and questions answered. Patient agrees to proceed with procedure.
[2019-06-07] MEDS: ceFAZolin 2 GM/D5W 50 ML 2 GM/50 ML BAG IVPB (17:34)
[2019-06-07] MEDS: HEPARIN SODIUM 5,000 UNITS/ML VIAL 5000 UNITS IRRIGATION (18:02)
[2019-06-07] MEDS: HEPARIN SODIUM, PORCINE 10,000 UNITS/10 ML VIAL 10000 UNITS IV PUSH (18:03)
[2019-06-07] MEDS: LIDO 1%/EPINEPHRINE 1:100,000 20 ML VIAL INFILTRATE (18:05)
--- NOTE | 2019-06-07 18:31 | PM.PROC ---
Procedure Note - Detailed Date of procedure: 06/07/19 Pre-op diagnosis: Complicated Dialysis Cath/ Mechanical Post-op diagnosis: same Procedure performed: 1. Left internal jugular Tunneled Dialysis Catheter placement using ultrasound and fluoroscopic guidance 2. Removal of right internal jugular tunnel dialysis catheter Description of procedure: Procedure as well as risks, benefits, and alternatives were discussed with patient. Written consent was obtained and placed in chart prior to procedure. Patient was brought back to surgical suite. Placed supine on operating table. Time-out was done confirm patient procedure. IV sedation was then administered by the Anesthesia Department. His chest and neck area was prepped and draped in sterile fashion using chlorhexidine prep. Patient was placed in Trendelenburg position. SonoSite ultrasound was used to identify the left internal jugular vein. It was visualized as a compressible vessel just lateral to the carotid artery. 1% lidocaine with epinephrine was infiltrated directly over the vessel under ultrasound guidance. An 18 gauge introducer needle was then advanced under ultrasound guidance directly into the left internal jugular vein. Dark nonpulsatile blood was aspirated. A 0.035 in guidewire was then advanced through the needle under fluoroscopic guidance. The guidewire was visualized advancing all the way down into the superior vena cava. 1% lidocaine with epinephrine was then infiltrated on the left anterior chest and along the tract up to the guidewire insertion site. A 5 mm incision was made with a 15 blade scalpel. A small bella incision was then also made at the insertion site at the neck. The tunneler was then advanced from the chest incision up to the neck incision and the catheter tubing was brought up through this tract. The dilator and sheath were then advanced over the guidewire under fluoroscopic visualization. The dilator and guidewire were then removed leaving the sheath in place. The catheter tubing was then advanced through the sheath under fluoroscopic guidance. The sheath was unsnapped and carefully peeled away. The catheter tubing was released underneath the neck incision. Fluoroscopy was used to confirm proper placement of the catheter tubing and no kinks along its path. The catheter was then hep-locked with Hep-Lock solution. The skin of the incisions was then approximated using 4-0 Monocryl subcuticular suture. Exofin glue was then applied at the neck incision and 2x2 gauze and Tegaderm drassing applied at the chest. The sutures at the right tunneled dialysis catheter were then removed using suture scissors. Gentle traction was applied on the dialysis catheter until the cuff came free. The catheter tubing was then carefully removed through the chest incision. Pressure was applied at the insertion site at the neck. The catheter tip was intact. After holding pressure for several minutes, no bleeding was identified at the removal site. The patient was then awakened from anesthesia and transferred to recovery. Implants: 28 cm Duraflow2 Dialysis Catheter Anesthesia: MAC and local (1% lidocaine with epinephrine) Surgeon: Jaya Overton DO Estimated blood loss (mL): 5 Complications: No immediate complications Condition: stable Disposition: floor Findings: This is a 53-year-old man who presented with a malfunctioning tunneled dialysis catheter. He was scheduled to undergo dialysis this morning, and when the dialysis catheter was flushed by the dialysis nurse, the syringe tip broke off into the lumen of the catheter. I was able to remove the broken tip of the syringe, but the catheter was then able to be aspirated or flushed. There appeared to be clotted blood within the lumen. The dialysis nurse was unable to declot the catheter, therefore he was in need of replacement of the dialysis catheter. Decision was made to proceed with removal and replacement of tunneled dialysis cathet
[2019-06-07 18:35] VITALS: BP 125/72; PULSE 88; RESP 14; O2SAT 98
[2019-06-07 18:55] VITALS: BP 149/83; PULSE 80; RESP 16; O2SAT 100
== END 2019-06-07 19:00 | disposition home or self-care (01) ==
PROVIDERS: PCP Family Medicine; Visit Provider Surgery
PROC: (CPT 36908; principal; 2019-06-07 16:30)
DX: T82.49XA Other complication of vascular dialysis catheter, initial encounter (principal); Y82.8 Other medical devices associated with adverse incidents; E11.22 Type 2 diabetes mellitus with diabetic chronic kidney disease; I13.2 Hypertensive heart and chronic kidney disease with heart failure and with stage 5 chronic kidney disease, or end stage renal disease; I50.9 Heart failure, unspecified; N18.6 End stage renal disease; Z99.2 Dependence on renal dialysis; E11.40 Type 2 diabetes mellitus with diabetic neuropathy, unspecified; E11.319 Type 2 diabetes mellitus with unspecified diabetic retinopathy without macular edema; I48.91 Unspecified atrial fibrillation; F17.220 Nicotine dependence, chewing tobacco, uncomplicated; E78.5 Hyperlipidemia, unspecified; Z79.82 Long term (current) use of aspirin; Z79.02 Long term (current) use of antithrombotics/antiplatelets; Z79.899 Other long term (current) drug therapy; Z95.5 Presence of coronary angioplasty implant and graft; Z95.1 Presence of aortocoronary bypass graft
CPT/HCPCS: 36558; 36589; 77001; A9270; C1750; J0690; J1644; J2250; J2704; J3010; J7040

== ENCOUNTER 2019-06-08 22:03 | Observation (INO) | payer MEDICARE, MEDICAID, SELFPAY ==
--- NOTE | ~2019-06-08 | XR_ITS ---
XR chest 1V portable DATE: 06/09/2019 00:33 INDICATION: Dialysis catheter malfunction TECHNIQUE: Portable supine AP chest on 06/09/2019 at 0031 hours COMPARISON: 06/07/2019 portable AP chest at 1833 hours FINDINGS: A large bore dual lumen left internal jugular central venous catheter is again noted with t he tip overlying the upper right atrium. Status post sternotomy/CABG. Cardiomegaly. There is pulmonary vascular congestion and redistribution. No pulmonary consolidation o r pleural effusion or pneumothorax is detected. IMPRESSION: Left internal jugular central venous catheter in right atrium Cardiomegaly, congestive changes Status post sternotomy/CABG Reviewed, dictated and finalized at location A. PRINTED CIRCUIT BOARD ASSEMBLER
[2019-06-08 22:11] VITALS: BP 185/103; PULSE 98; RESP 16; TEMP 36.8; O2SAT 100
--- NOTE | 2019-06-08 22:32 | ED.GENADULT ---
HPI - General Adult General Chief complaint: Unspecified Stated complaint: bleeding dialysis port Time Seen by Provider: 06/08/19 22:25 Source: patient and RN notes reviewed Mode of arrival: ambulatory Limitations: no limitations History of Present Illness HPI narrative: A 53 y/o male presents to the ED placed last night just started bleeding awhile ago dialysis cath in [place] chest dr. donna nelson over lt chest dialysis cath Related Data Home Medications Medication Instructions Recorded Confirmed aspirin [Aspir-81] 81 mg PO DAILY 04/04/19 06/07/19 atorvastatin 80 mg PO DAILY 04/04/19 06/07/19 clopidogrel [Plavix] 75 mg PO DAILY 04/04/19 06/07/19 metoprolol succinate 12.5 mg PO BID 04/04/19 06/07/19 midodrine 5 mg PO BID 04/04/19 06/07/19 tamsulosin 0.4 mg PO DAILY 04/04/19 06/07/19 Allergies Allergy/AdvReac Type Severity Reaction Status Date / Time lisinopril Allergy Unknown hives Verified 06/08/19 22:22 [facility] Social History Social History Social History: He is and currently living with his ex- Bola tavarez. He does need her to be durable power employee benefits attorney and is a full code. Patient states he occasionally drinks a beer but not very often. Stated he has not smoked marijuana since 80s. He is disabled Smoking status: Never smoker Smokeless tobacco user: chewing tobacco Smoking end date: 05/01/16 Additional smoking assessment comments: chews tobacco for 41 years Alcohol intake: former Substance use: former Additional living arrangements comments: Ex Additional occupation/education comments: Disabled Gender identity (if verbalized by the patient): Male Spiritual care concerns: No Agree to blood products: Yes Course Consultations Consultation #1: Discussed case with Dr. Overton (General Surgery). Suggests checking basic labs and a CXR. Date: 06/09/19 Time: 00:06 Vital Signs Vital signs: Vital Signs Temperature 36.8 C 06/08/19 22:11 Pulse Rate 98 06/08/19 22:11 Respiratory Rate 16 06/08/19 22:11 Blood Pressure 185/103 H 06/08/19 22:11 Pulse Oximetry 100 06/08/19 22:11 Temperature 36.8 C 06/08/19 22:11 Pulse Rate 81 06/09/19 00:06 Respiratory Rate 15 06/09/19 00:06 Blood Pressure 173/109 H 06/09/19 00:06 Pulse Oximetry 100 06/09/19 00:06 Medical Decision Making MDM Narrative Medical decision making narrative: Patient presented for evaluation of bleeding from dialysis catheter. Patient has baseline oozing, coming from the site, obtain a chest x-ray which confirms placement. No evidence of coagulopathy. C apply direct pressure to the area at the neck insertion site as well as near to the catheter insertion site, and there is no change in oozing of blood from the site. Spoke with the on-call surgeon who also placed the catheter yesterday, and because even with the use of weights over the patient's chest and passive pressure to stop bleeding, and there was no resolution. Also give the patient TXA without any transient improvement in the oozing. Given this, will admit patient to hospital for evaluation by the surgeon who placed the site for bleeding complication. No sign of severe hemorrhage or bleeding that would require transfusion at this point.Pt admitted in stable condition. I am heron Alarcon we called the care of back about 830 Vital Signs Vital Signs: Vital Signs Temperature 36.8 C 06/08/19 22:11 Pulse Rate 98 06/08/19 22:11 Respiratory Rate 16 06/08/19 22:11 Blood Pressure 185/103 H 06/08/19 22:11 Pulse Oximetry 100 06/08/19 22:11 Temperature 36.8 C 06/08/19 22:11 Pulse Rate 81 06/09/19 00:06 Respiratory Rate 15 06/09/19 00:06 Blood Pressure 173/109 H 06/09/19 00:06 Pulse Oximetry 100 06/09/19 00:06 Lab Data Result diagrams: 06/09/19 00:24 06/09/19 00:24 Labs: Lab Results 06/09/19 0
--- NOTE | 2019-06-08 23:12 | PC.NURSE ---
Passive pressure by EDP Bertels being used to control bleeding at this time. Patient laying supine at this time, patient placed on monitor.
[2019-06-08 23:38] VITALS: PULSE 78
[2019-06-09 00:06] VITALS: BP 173/109; PULSE 81; RESP 15; O2SAT 100
[2019-06-09 00:30] LABS: Basophils Percent Auto 0.4 % (0.2-1.2); Eosinophils Absolute Auto 0.1 K/mm3 (0-0.3); Hemoglobin 10.8 g/dL (14.0-18.0); Immature Granulocyte Absolute 0.02 K/mm3 (0.00-0.031); Immature Granulocyte Percent A 0.3 % (0-0.5); Lymphocytes Absolute Auto 0.96 K/mm3 (0.9-3.2); Lymphocytes Percent Auto 13.4 % (18.3-44.2); Mean Corpuscular HGB Conc 30.9 g/dl (32-36); Mean Corpuscular Hemoglobin 28.1 pg (26-34); Mean Corpuscular Volume 90.9 fl (80-100); Mean Platelet Volume 9.9 fl (7.4-10.4); Monocytes Absolute Auto 0.4 K/mm3 (0.1-0.6); Monocytes Percent Auto 6.2 % (2.6-8.5); Neutrophils Absolute Auto 5.6 K/mm3 (1.3-6.7); Neutrophils Percent Auto 77.7 % (45.5-73.1); Platelet Count Result 198 k/mm3 (150-375); Red Blood Count 3.85 M/mm3 (4.6-6.20); Red Cell Distribution Width 15.3 % (11.5-14.5); White Blood Count 7.2 K/mm3 (4.5-10.0)
[2019-06-09 00:42] LABS: Blood Urea Nitrogen 38 mg/dL (9-20); Calcium 8.6 mg/dL (8.4-10.2); Carbon Dioxide 31 mmol/L (22-30); Chloride 99 mmol/L (98-107); Estimated CRCL calculation 26 ml/min; Estimated Glomerular Filt Rate 22; Glucose 100 mg/dL (75-110); Potassium 4.5 mmol/L (3.4-5.0); Sodium 141 mmol/L (137-145)
[2019-06-09] MEDS: TRANEXAMIC ACID 1,000 MG/10 ML AMPUL 1000 MG IV PUSH (00:45)
[2019-06-09 00:46] LABS: INR 1.1; Prothrombin Time 13.8 Seconds (11.1-14.7)
[2019-06-09 00:47] LABS: Partial Thromboplastin Time 28.7 SECONDS (22.3-36.8)
[2019-06-09 01:34] VITALS: BP 160/90; PULSE 81; RESP 17; O2SAT 95
--- NOTE | 2019-06-09 01:35 | PC.NURSE ---
Bleeding not controlled after TXA, SOL Waddell informed.
--- NOTE | 2019-06-09 02:45 | PC.NURSE ---
Patient refusing to have any more dressing or weights on the site at this time. States nothing is helping and this obviously isn't going to help either. I am just going to wait until the doctor fixes me up. SOL Waddell notified.
--- NOTE | 2019-06-09 03:18 | ADMGEN ---
This patient, Arturo Mcmillan, was admitted to Medical Room [facility]- AT 0310. Patient/family oriented to hospital policies and general routines including ID bracelet, bed and alarms, visiting hours, pain management, procedures, bathroom and other care routines, personal items, smoking policy, room service/diet, and visiting hours. Valuables list has been completed. Information on how to activate the Rapid Response Team has been discussed. Patient/Family are encouraged to report perceived risks to care and to ask questions if they do not understand what they are told or what they should do.
[2019-06-09 03:30] VITALS: BP 181/98; PULSE 81; RESP 16; TEMP 36.1; O2SAT 100; BMI 30.2
[2019-06-09 06:00] VITALS: BP 176/89; PULSE 78; RESP 14; TEMP 36.2; O2SAT 100
--- NOTE | 2019-06-09 11:24 | PM.SD ---
Same Day Admit/Disch: HPI History of Present Illness Chief complaint: Dialysis site malfunction, bleeding Narrative: Arturo Tavarez is a 53 year old male who presented to the emergency department in the middle the night with bleeding from his recently placed tunneled dialysis catheter. The catheter was placed on 06/07 without complication. He denied any bleeding at the insertion site until last night. He had been down to feed his pet and when he stood back up and sat down, he noticed his sure it was all bloody. In the ER, pressure was held at the neck and chest, but the ER physicians could not figure out where the bleeding was coming from and it continued to bleed despite pressure. Coags were checked and appeared within normal limits. The patient is on Plavix. He was hemodynamically stable, but since bleeding could not be controlled, patient was admitted for further evaluation and treatment. [facility] Past Medical History Medical History Atrial fibrillation CAD (coronary artery disease) History of 4 stents and double bypass Congestive heart failure 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 He does need her to be durable power assistant county attorney and is a full code. Patient states he occasionally drinks a beer but not very often. Stated he has not smoked marijuana since 80s. He is disabled Smoking status: Never smoker Smokeless tobacco user: chewing tobacco Smoking end date: 05/01/16 Additional smoking assessment comments: chews tobacco for 41 years Alcohol intake: former Substance use: former Substance use type: marijuana Additional living arrangements comments: Ex Additional occupation/education comments: Disabled Gender identity (if verbalized by the patient): Male Spiritual care concerns: No Agree to blood products: Yes Same Day Admit/Disch: Med Pre-admit Medications Home Medications Medication Instructions Recorded Confirmed Type aspirin [Aspir-81] 81 mg PO DAILY 04/04/19 06/09/19 History atorvastatin 80 mg PO HS 04/04/19 06/09/19 History clopidogrel [Plavix] 75 mg PO DAILY 04/04/19 06/09/19 History metoprolol succinate 12.5 mg PO BID 04/04/19 06/09/19 History midodrine 5 mg PO TID 04/04/19 06/09/19 History Exam Const: General: no acute distress Neck: Neck: supple and no JVD Chest: Other: Left internal jugular tunnel dialysis catheter in place. No bruising or hematoma noted at the neck insertion site. Large amount of blood saturated gauze around the exit site on the anterior chest. Gauze and blood was all cleared from around the exit site. Bleeding appeared to be coming from the skin on the chest incision. Pressure was held here and bleeding was controlled without any signs of neck swelling or bruising. After holding pressure for 5 minutes, there was still some mild bleeding. I then placed a large stat seal hemostatic disc at the exit site on the chest and applied pressure for 10 minutes. Bleeding appeared to stop after this. I then applied a 5 lb sandbag on the chest over a bandage for another 30 minutes and reassessed for any further b
== END 2019-06-09 12:45 | disposition home or self-care (01) ==
LOC: ANHED 06-09 01:29 → ANH2MED 06-09 01:46
PROVIDERS: Admitting Provider Surgery; Emergency Provider Emergency Medicine; PCP Family Medicine; Visit Provider Surgery
DX: T82.838A Hemorrhage due to vascular prosthetic devices, implants and grafts, initial encounter (principal); Y82.8 Other medical devices associated with adverse incidents; E11.22 Type 2 diabetes mellitus with diabetic chronic kidney disease; I13.2 Hypertensive heart and chronic kidney disease with heart failure and with stage 5 chronic kidney disease, or end stage renal disease; I50.9 Heart failure, unspecified; N18.6 End stage renal disease; Z99.2 Dependence on renal dialysis; E11.42 Type 2 diabetes mellitus with diabetic polyneuropathy; E11.319 Type 2 diabetes mellitus with unspecified diabetic retinopathy without macular edema; I25.10 Atherosclerotic heart disease of native coronary artery without angina pectoris; F17.220 Nicotine dependence, chewing tobacco, uncomplicated; E78.5 Hyperlipidemia, unspecified; Z79.02 Long term (current) use of antithrombotics/antiplatelets; Z79.82 Long term (current) use of aspirin; Z79.899 Other long term (current) drug therapy
CPT/HCPCS: 36415; 71045; 80048; 85025; 85610; 85730; 87040; 87081; 96374; 99285; G0378; G0379

== ENCOUNTER 2019-06-14 18:26 | Emergency (ER) | payer MEDICARE, MEDICAID, SELFPAY ==
[2019-06-14 18:33] VITALS: BP 175/87; PULSE 91; RESP 18; TEMP 36.4; O2SAT 95
--- NOTE | 2019-06-14 18:47 | ED.GENADULT ---
HPI - General Adult General Chief complaint: Unspecified Stated complaint: Dialysis cath bleeding Time Seen by Provider: 06/14/19 18:33 Source: patient and RN notes reviewed Mode of arrival: ambulatory Limitations: no limitations History of Present Illness HPI narrative: A 53 y/o male presents to the ED with bleeding to his lt chest around his chest catheter beginning roughly 30 minutes ago. He states that he was seen here in the ED for the same thing 7 days ago. He He notes that he is on Plavix and that he finished his dialysis treatment at 10 AM this morning. He denies any fevers, chills, sweats, N/V/D, CP, or ABD pain. MD complaint: Bleeding to his lt chest around his chest catheter Onset (ago): minute(s) (30) Location: chest (lt) Associated symptoms: denies other symptoms Related Data Home Medications Medication Instructions Recorded Confirmed aspirin [Aspir-81] 81 mg PO DAILY 04/04/19 06/09/19 atorvastatin 80 mg PO HS 04/04/19 06/09/19 clopidogrel [Plavix] 75 mg PO DAILY 04/04/19 06/09/19 metoprolol succinate 12.5 mg PO BID 04/04/19 06/09/19 midodrine 5 mg PO TID 04/04/19 06/09/19 Allergies Allergy/AdvReac Type Severity Reaction Status Date / Time lisinopril Allergy Unknown hives Verified 06/14/19 18:40 Review of Systems Review of Systems: All systems reviewed & are unremarkable except as noted in HPI and below Constitutional: Constitutional: Denies chills, Denies fever(s) and Denies other (sweats) Cardiovascular: Cardiovascular: Denies chest pain and Reports other (Bleeding to his lt chest around his chest catheter) Gastrointestinal: Gastrointestinal: Denies abdominal pain, Denies diarrhea, Denies nausea and Denies vomiting PMF Past Medical History Medical History Atrial fibrillation CAD (coronary artery disease) History of 4 stents and double bypass Congestive heart failure 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 He does need her to be durable power district attorney and is a full code. Patient states he occasionally drinks a beer but not very often. Stated he has not smoked marijuana since 80s. He is disabled Smoking status: Never smoker Smokeless tobacco user: chewing tobacco Smoking end date: 05/01/16 Additional smoking assessment comments: chews tobacco for 41 years Alcohol intake: former Substance use: former Substance use type: marijuana Additional living arrangements comments: Ex Additional occupation/education comments: Disabled Gender identity (if verbalized by the patient): Male Spiritual care concerns: No Agree to blood products: Yes Exam Narrative: Exam Narrative: GENERAL: Well-appearing, well-nourished, and in no acute distress. HEAD: Normocephalic, atraumatic. ENT: Mucous membranes moist. CHEST: Clear to auscultation. No respiratory distress. Tunneled dialysis catheter left chest wall with dried blood across the chest and slight oozing coming from the skin incision. Bandage over previous right-sided tunneled catheter site. No hematoma or bruising to the chest on the left side. HEART: Regular rate and rhythm. Normal peripheral pulses. EXTREMITIES: N
== END 2019-06-14 23:20 | disposition home or self-care (01) ==
PROVIDERS: Emergency Provider Emergency Medicine; PCP Family Medicine
DX: T82.838A Hemorrhage due to vascular prosthetic devices, implants and grafts, initial encounter (principal); E11.22 Type 2 diabetes mellitus with diabetic chronic kidney disease; I13.2 Hypertensive heart and chronic kidney disease with heart failure and with stage 5 chronic kidney disease, or end stage renal disease; N18.6 End stage renal disease; I50.30 Unspecified diastolic (congestive) heart failure; I48.91 Unspecified atrial fibrillation; I25.10 Atherosclerotic heart disease of native coronary artery without angina pectoris; Z99.2 Dependence on renal dialysis; E11.42 Type 2 diabetes mellitus with diabetic polyneuropathy; H54.8 Legal blindness, as defined in USA; E11.319 Type 2 diabetes mellitus with unspecified diabetic retinopathy without macular edema; Z95.5 Presence of coronary angioplasty implant and graft; Z95.1 Presence of aortocoronary bypass graft; Z79.02 Long term (current) use of antithrombotics/antiplatelets
CPT/HCPCS: 12001; 99282